=== PATIENT | male | born 1990 | race Two or more races ===

== ENCOUNTER 2019-08-17 22:04 | Emergency (ER) | payer SELFPAY ==
[2019-08-17] MEDS ORDERED: Ondansetron 4 MG/2 ML SDV IVPUSH ONE (22:55)
[2019-08-17] MEDS ORDERED: Sodium Chloride 0.9% 1,000 ML IV ONE ×2 (22:55→22:58)
[2019-08-17] MEDS: HYDROmorphone 1 MG/ML Syringe IVPUSH PRN (23:05)
[2019-08-17 23:30] LABS: CARBON DIOXIDE,CO2 19.5 mmol/L (21.0-32.0); POTASSIUM,K 3.4 mmol/L (3.5-5.1)
[2019-08-17] MEDS ORDERED: Iopamidol 755 Mg/ML 100 ML Bottle IVPUSH STA (23:53)
[2019-08-18] MEDS: HYDROmorphone 1 MG/ML Syringe IVPUSH PRN ×2 (00:48→03:05)
--- NOTE | 2019-08-18 01:02 | CT ---
HISTORY: Right upper quadrant pain. TECHNIQUE: CT abdomen and pelvis with IV contrast. COMPARISON: None. FINDINGS: Abdomen: Diffusely decreased attenuation of the liver. No focal liver lesions. Gallbladder is distended. No bile duct dilation. Scattered calcifications in the pancreas. No peripancreatic inflammatory change. No pancreatic mass. No spleen lesions. No adrenal nodules. Kidneys enhance symmetrically. 1.7 cm cyst in the upper pole of the left kidney. Several subcentimeter hypodense lesions in both kidneys are too small to characterize but likely cysts. No hydronephrosis. No dilated bowel. Appendix is normal. No free fluid. No lymphadenopathy. Abdominal aorta is normal caliber. Pelvis: No lymphadenopathy. Musculoskeletal: Unremarkable. Lower chest: Unremarkable. IMPRESSION: 1. Distended gallbladder without pericholecystic inflammatory change. No bile duct dilation. 2. Fatty infiltration of the liver. 3. Findings of chronic pancreatitis. Please note that all CT scans at this facility use dose modulation, iterative reconstruction, and/or weight-based dosing when appropriate to reduce radiation dose to as low as reasonably achievable. Dictated by Nguyễn Rai MD @ Aug 18 2019 12:56AM Signed by Dr. Nguyễn Rai @ Aug 18 2019 1:01AM
[2019-08-18] MEDS ORDERED: Haloperidol Lactate 5 MG/ML SDV IM ONE (03:12)
[2019-08-18 03:38] LABS: CARBON DIOXIDE,CO2 21.9 mmol/L (21.0-32.0); POTASSIUM,K 4.1 mmol/L (3.5-5.1)
--- NOTE | 2019-08-18 04:38 | EDM.PDOC ---
ED [facility] GENERAL MEDICAL PROBLEM - General Chief Complaint: Gastrointestinal Problem Stated Complaint: ABDOMINAL PAIN Time Seen by Provider: 08/17/19 22:54 - History of Present Illness INITIAL COMMENTS - FREE TEXT/NARRATIVE: HPI 29-year-old male presents with epigastric pain, nausea, vomiting of ~3 days duration after heavy drinking. No chest pain, shortness breath, fevers, chills, dysuria, urinary frequency. No diarrhea. Notes frequent loose stools. M/S/F/SocHx notable for: please see HPI; remainder reviewed with patient and in chart. ROS: Negative constitutional, eye, cardiovascular, pulmonary, GI, , MSK, skin , neurologic, psychiatric, endocrine unless noted in the HPI. Exam HR 145, RR 18, BP 150/11, T 37.7C, SaO2 96% on room air. Gen: Pleasant, non-toxic appearing, resting in mild-moderate discomfort. HEENT: NC, AT, PEERL, EOMI. Resp: Clear to auscultation bilaterally, normal work of breathing, no accessory muscle usage. Card: Regular rate and rhythm with no murmurs, rubs, or gallops, extremities warm and well perfused. GI:-moderate right sided and epigastric tenderness palpation, remainder of abdomen nontender to palpation, no rebound, no guarding. : No suprapubic tenderness to palpation. No CVA tenderness percussion bilaterally. MSK: No visible deformities, strength and tone without visually appreciable deficit. Skin: Normal color with no visible lesions. Neuro: alert and oriented 3, no facial asymmetry, vision and hearing WNL. Psych: Mood and affect appropriate. Focused Biliary Ultrasound Indication: Right upper quadrant pain. Views Obtained: Transverse and longitudinal biliary views. Transverse common bile duct. Findings: Negative sonographic Rosas sign. No stones or sludge appreciated. Perpendicular measurement of the anterior gallbladder wall at 1.5 mm. No pericholecystic fluid. Labs / Imaging: WBC 19.75, HB 16.4, lactic acid 1.6, sodium 133, potassium 3.4, total bilirubin 1.6, AST 39, ALT 53, alkaline phosphatase 124, lipase 378. UA - small leukocyte esterase, small occult blood, negative nitrate, few bacteria. CT abdomen/pelvis: distended gallbladder without pericholecystic inflammatory change. No bile duct dilatation. Fatty infiltration of the liver. Findings of chronic pancreatitis. Labs (repeat): WBC 13.96, HB 14.4, sodium 137, potassium 4.1, AST 28, ALT 43, alkaline phosphatase 101, total bilirubin 0.9. MDM Previous chart, nursing note, labs, imaging, and vitals reviewed. A: 29-year-old male presents with epigastric pain, nausea, vomiting of ~3 days duration after heavy drinking. DDx: biliary disease (cholelithiasis, cholecystitis, cholangitis, choledocholithiasis), pancreatitis, dehydration, electrolyte abnormalities, acute appendicitis, bacterial enteritis, bacteremia/septicemia. Evaluation: symptoms are believed to be secondary to a likely self-limited enteritis. While the patient had significant leukocytosis and mild liver enzyme abnormalities on arrival, these significantly improved with supportive care. CT notable for distended gallbladder, [id number] ultrasound without findings consistent with cholecystitis. No further acute abnormalities noted. UA negative. ED Course: 2 L NS, 4 mg Zofran, p.r.n. hydromorphone ordered with the initial evaluation for symptomatic treatment. Patient with significant improvement, mild ongoing nausea, 2 mg haloperidol given. Patient able to take PO well. Repeat labs with significant improvement in white blood cell count, normalization of liver enzymes. 04:33 - patient resting comfortably, notes resolution of symptoms. Taking PO well. Disposition: discharge with RX for Zofran and Bentyl. PCP follow-up recommended. Return to care precautions provided. Impression: nausea, vomiting, diarrhea, abdominal pain. abdominal Pain Score (Numeric/FACES): 10 - Related Data Allergies Allergy/AdvReac Type Severity Reaction Status Date / Time No Known Allergies Allergy Verified 08/17/19 22:28 Home Meds: Home Meds Dicyclomine [Bentyl] 20 mg PO TID PRN #12 tab 08/18/19 [Rx] Ondansetron [Zofran ODT] 4 mg PO Q6H PRN #12 tab.dis 08/18/19 [Rx] Past Medical History HEENT History: Reports: None Cardiovascular History: Reports: None Respiratory History: Reports: None Gastrointestinal History: Reports: Pancreatitis Genitourinary History: Reports: None Musculoskeletal History: Reports: None Neurological History: Reports: None Psychiatric History: Reports: None Endocrine/Metabolic History: Reports: None Hematologic History: Reports: None Dermatologic History: Reports: None - Infectious Disease History Infectious Disease History: Reports: Chicken Pox - Past Surgical History Male Surgical History: Reports: None Social & Family History - Family History Family Medical History: Noncontributory - Recreational Drug Use Recreational Drug Use: Yes Recreational Drug Type: Reports: Marijuana/Hashish ED ROS GENERAL - Review of Systems Review Of Systems: See Below ED EXAM, GENERAL - Physical Exam Exam: See Below Course - Vital Signs Last Recorded V/S: Last Vital Signs Temp 37.7 C 08/17/19 22:28 Pulse 145 H 08/17/19 22:28 Resp 18 08/17/19 22:28 BP 158/11 H 08/17/19 22:28 Pulse Ox 96 08/17/19 22:28 - Orders/Labs/Meds Orders: Active Orders 24 hr Category Date Time Status Communication Order [RC] STAT Care 08/18/19 02:56 Active Labs: Laboratory Tests 08/17/19 08/17/19 08/17/19 Range/Units 23:00 23:00 23:00 WBC 19.75 H (4.0-11.0) K/uL RBC 4.79 (4.50-5.90) M/uL Hgb 16.4 (13.0-17.0) g/dL Hct 45.2 (38.0-50.0) % MCV 94.4 (80.0-98.0) fL MCH 34.2 H (27.0-32.0) pg MCHC 36.3 (31.0-37.0) g/dL RDW Std Deviation 41.0 (28.0-62.0) fl RDW Coeff of [place] 12 (11.0-15.0) % Plt Count 237 (150-400) K/uL MPV 9.60 (7.40-12.00) fL Neut % (Auto) 86.3 H (48.0-80.0) % Lymph % (Auto) 6.8 L (16.0-40.0) % [place] % (Auto) 6.7 (0.0-15.0) % Eos % (Auto) 0.0 (0.0-7.0) % Baso % (Auto) 0.2 (0.0-1.5) % Neut # (Auto) 17.0 H (1.4-5.7) K/uL Lymph # (Auto) 1.4 (0.6-2.4) K/uL [place] # (Auto) 1.3 H (0.0-0.8) K/uL Eos # (Auto) 0.0 (0.0-0.7) K/uL Baso # (Auto) 0.0 (0.0-0.1) K/uL Nucleated RBC % 0.0 /100WBC Nucleated RBCs # 0 K/uL Lactate 1.6 (0.20-2.00) mmol/L Sodium (136-148) mmol/L Potassium (3.5-5.1) mmol/L Chloride (98-107) mmol/L Carbon Dioxide (21.0-32.0) mmol/L BUN (7.0-18.0) mg/dL Creatinine (0.8-1.3) mg/dL Est Cr Clr Drug Dosing mL/min Estimated GFR (MDRD) ml/min Glucose (74-106) mg/dL Calcium (8.5-10.1) mg/dL Total Bilirubin (0.2-1.0) mg/dL AST (15-37) IU/L ALT (14-63) IU/L Alkaline Phosphatase (46-116) U/L Total Protein (6.4-8.2) g/dL Albumin (3.4-5.0) g/dL Globulin (2.6-4.0) g/dL Albumin/Globulin Ratio (0.9-1.6) Lipase (73-393) U/L Urine Color YELLOW Urine Appearance CLEAR Urine pH 7.0 (5.0-8.0) Ur Specific [place] 1.015 (1.001-1.035) Urine Protein 100 H (NEGATIVE) mg/dL Urine Glucose (UA) NEGATIVE (NEGATIVE) mg/dL Urine Ketones NEGATIVE (NEGATIVE) mg/dL Urine Occult Blood SMALL H (NEGATIVE) Urine Nitrite NEGATIVE (NEGATIVE) Urine Bilirubin NEGATIVE (NEGATIVE) Urine Urobilinogen 0.2 (<2.0) EU/dL Ur Leukocyte Esterase SMALL H (NEGATIVE) Urine RBC 0-2 (0-2/HPF) Urine WBC 7-10 (0-5/HPF) Ur Epithelial Cells RARE (NONE-FEW) Urine Bacteria FEW (NEGATIVE) 08/17/19 08/18/19 08/18/19 Range/Units 23:00 03:10 03:10 WBC 13.96 H (4.0-11.0) K/uL RBC 4.28 L (4.50-5.90) M/uL Hgb 14.4 (13.0-17.0) g/dL Hct 41.2 (38.0-50.0) % MCV 96.3 (80.0-98.0) fL MCH 33.6 H (27.0-32.0) pg MCHC 35.0 (31.0-37.0) g/dL RDW Std Deviation 42.3 (28.0-62.0) fl RDW Coeff of [place] 12 (11.0-15.0) % Plt Count 214 (150-400) K/uL MPV 9.30 (7.40-12.00) fL Neut % (Auto) 78.5 (48.0-80.0) % Lymph % (Auto) 13.3 L (16.0-40.0) % [place] % (Auto) 8.0 (0.0-15.0) % Eos % (Auto) 0.0 (0.0-7.0) % Baso % (Auto) 0.2 (0.0-1.5) % Neut # (Auto) 11.0 H (1.4-5.7) K/uL Lymph # (Auto) 1.9 (0.6-2.4) K/uL [place] # (Auto) 1.1 H (0.0-0.8) K/uL Eos # (Auto) 0.0 (0.0-0.7) K/uL Baso # (Auto) 0.0 (0.0-0.1) K/uL Nucleated RBC % 0.0 /100WBC Nucleated RBCs # 0 K/uL Lactate (0.20-2.00) mmol/L Sodium 133 L 137 (136-148) mmol/L Potassium 3.4 L 4.1 (3.5-5.1) mmol/L Chloride 96 L 102 (98-107) mmol/L Carbon Dioxide 19.5 L 21.9 (21.0-32.0) mmol/L BUN 17 16 (7.0-18.0) mg/dL Creatinine 1.6 H 1.4 H (0.8-1.3) mg/dL Est Cr Clr Drug Dosing 60.92 69.62 mL/min Estimated GFR (MDRD) 51.0 59.5 ml/min Glucose 156 H 125 H (74-106) mg/dL Calcium 8.8 7.9 L (8.5-10.1) mg/dL Total Bilirubin 1.6 H 0.9 (0.2-1.0) mg/dL AST 39 H 28 (15-37) IU/L ALT 53 43 (14-63) IU/L Alkaline Phosphatase 124 H 101 (46-116) U/L Total Protein 9.1 H 7.6 (6.4-8.2) g/dL Albumin 4.6 3.8 (3.4-5.0) g/dL Globulin 4.5 H 3.8 (2.6-4.0) g/dL Albumin/Globulin Ratio 1.0 1.0 (0.9-1.6) Lipase 378 (73-393) U/L Urine Color Urine Appearance Urine pH (5.0-8.0) Ur Specific [place] (1.001-1.035) Urine Protein (NEGATIVE) mg/dL Urine Glucose (UA) (NEGATIVE) mg/dL Urine Ketones (NEGATIVE) mg/dL Urine Occult Blood (NEGATIVE) Urine Nitrite (NEGATIVE) Urine Bilirubin (NEGATIVE) Urine Urobilinogen (<2.0) EU/dL Ur Leukocyte Esterase (NEGATIVE) Urine RBC (0-2/HPF) Urine WBC (0-5/HPF) Ur Epithelial Cells (NONE-FEW) Urine Bacteria (NEGATIVE) Meds: Medications Discontinued Medications Generic Name Dose Route Start Last Admin Trade Name Freq PRN Reason Stop Dose Admin Haloperidol Lactate 2 mg 08/18/19 03:12 08/18/19 03:53 Haldol IM 08/18/19 03:13 2 mg ONETIME ONE Administration Hydromorphone HCl 0.5 - 1 mg 08/17/19 22:55 08/18/19 03:05 Dilaudid IVPUSH 1 mg Q1H PRN Administration Pain Sodium Chloride 1,000 mls @ 1,000 mls/hr 08/17/19 22:55 08/17/19 23:04 Normal Saline IV 08/17/19 23:54 1,000 mls/hr .Bolus ONE Administration Sodium Chloride 1,000 mls @ 1,000 mls/hr 08/17/19 22:58 08/18/19 00:49 Normal Saline IV 08/17/19 23:57 1,000 mls/hr .Bolus ONE Administration Iopamidol 100 ml 08/17/19 23:53 08/18/19 00:07 Isovue-370 (76%) IVPUSH 08/17/19 23:54 100 ml ONETIME STA Administration Ondansetron HCl 4 mg 08/17/19 22:55 08/17/19 23:05 Zofran IVPUSH 08/17/19 22:56 4 mg ONETIME ONE Administration Departure - Departure Time of Disposition: 04:36 Disposition: Home, Self-Care 01 Clinical Impression: Vomiting, Diarrhea, Abdominal pain - Discharge Information Prescriptions: Dicyclomine [Bentyl] 20 mg PO TID PRN #12 tab PRN Reason: Pain Ondansetron [Zofran ODT] 4 mg PO Q6H PRN #12 tab.dis PRN Reason: Nausea Referrals: PCP,None [Primary Care Provider] - Additional Instructions: You were in seen in the [facility] Emergency Department for evaluation of nausea, vomiting, diarrhea, abdominal pain. At the time of your evaluation your symptoms are tentatively believed to be due to a viral GI infection. You have been prescribed Zofran, an antinausea medication, and Bentyl, and antispasmodic. Please read and follow all of the instructions below. Please follow up with your primary care physician tomorrow for repeat evaluation. When calling for follow-up care, please make the office aware that this follow-up is from your recent emergency room visit. If for any reason you are refused follow-up, please contact the [facility] Emergency Department at and asked to speak to the emergency department charge nurse. Your care today was limited to identifying and treating emergent medical problems only. Many people have subtle differences in their test results that require follow up with their outpatient physician(s) to correctly determine if this represents a normal variation or concerning abnormality with respect to your specific health. The care given to you today was limited to identifying and treating emergent medical problems - you need to request a copy of all of your medical records from today's visit and follow up with your outpatient physician(s) to review both today's visit and your overall health. If you have any new symptoms or if you are at all concerned about your health please return immediately to the emergency department. Abdominal Pain The exact cause of your abdominal pain is not certain. Based upon the testing today you are felt to be at low risk for discharge. There are no current signs of a life threatening illness or injury. Your condition does not seem serious now; however, sometimes the signs of a serious problem may take more time to appear. For this reason, it is important for you to watch for any new symptoms, problems, or worsening of your condition. Over the next few days, the abdominal pain may come and go, or be continuous. Other common symptoms can include nausea and vomiting. Sometimes it can be difficult to tell if you feel nauseous , you may just feel bad and not associate that feeling with nausea. Constipation , diarrhea, and a fever may go along with the pain. The pain may continue even if treated correctly over the following days. Depending on how things go, sometimes the cause can become clear and may require further or different treatment. Additional evaluations, medications, or tests may be needed. If your symptoms do not worsen but you are still having pain after 12-24 hours, please call your primary care physician to arrange for further evaluation. Return to the emergency department if any of the following occur: Pain gets worse or moves to the right lower abdomen New or worsening vomiting or diarrhea Swelling of the abdomen Unable to pass gas or stool for more than 8 hours Fever of 100.4F (38C) or higher, or as directed by your healthcare provider. Blood in vomit or bowel movements (dark red or black color) If you have yellow skin or eyes or if you have dark brown urine. Weakness, dizziness Chest, arm, back, neck or jaw pain Unexpected vaginal bleeding or missed period Trouble breathing Confusion Fainting or loss of consciousness Rapid heart rate Seizure If you are light headed upon standing or passing out. If you are otherwise concerned about your health. Home Care Do not force yourself to eat, especially if having cramps, vomiting, or diarrhea. Water is important so you do not get dehydrated. Soup may also be good. Sports drinks may also help, especially if they are not too acidic. Make sure you don't drink sugary drinks as this can make things worse. Take liquids in small amounts. Caffeine sometimes makes the pain and cramping worse. Avoid dairy products if you have vomiting or diarrhea. Don't eat large amounts at a time. Wait a few minutes between bites. Eat a diet low in fiber (called a low-residue diet). Foods allowed include refined breads, white rice, fruit and vegetable juices without pulp, tender meats. These foods will pass more easily through the intestine. Avoid whole-grain foods, whole fruits and vegetables, meats, seeds and nuts, fried or fatty foods, dairy, alcohol and spicy foods until your symptoms go away. Ondansetron (Brand Name: Zofran) Take one tablet every 6 hours as needed for nausea SIDE EFFECTS: Headache, fever, lightheadedness, dizziness, drowsiness, tiredness , constipation. If these effects persist or worsen, notify your doctor promptly. Many people using this medication do not have serious side effects. Tell your doctor right away if you have any serious side effects, including: stomach pain, muscle stiffness/spasm, vision changes (e.g., temporary loss of vision, blurred vision, uncontrollable eye movements). Get medical help right away if any of these rare but very serious side effects occur: chest pain, fainting, slow/fast/irregular heartbeat. A very serious allergic reaction to this drug is rare. However, get medical help right away if you notice any of the following symptoms of a serious allergic reaction: rash, itching/swelling ( especially of the face/tongue/throat), severe dizziness, trouble breathing. This is not a complete list of possible side effects. If you notice other effects not listed above, contact your doctor or pharmacist. PRECAUTIONS: Before using ondansetron, tell your doctor or pharmacist if you are allergic to it; or to other serotonin blockers (e.g., granisetron); or if you have any other allergies. This product may contain inactive ingredients, which can cause allergic reactions or other problems. Talk to your pharmacist for more details. Before using this medication, tell your doctor or pharmacist your medical history, especially of: irregular heartbeat, liver disease, stomach /intestinal problems (e.g., recent abdominal surgery, ileus, swelling). Ondansetron may cause a condition that affects the heart rhythm (QT prolongation ). QT prolongation can infrequently result in serious (rarely fatal) fast/ irregular heartbeat and other symptoms (such as severe dizziness, fainting) that require immediate medical attention. The risk of QT prolongation may be increased if you have certain medical conditions or are taking other drugs that may affect the heart rhythm (see also Drug Interactions section). Before using ondansetron, tell your doctor or pharmacist if you have any of the following conditions: certain heart problems (heart failure, slow heartbeat, QT prolongation in the EKG), family history of certain heart problems (QT prolongation in the EKG, sudden cardiac ). Low levels of potassium or magnesium in the blood may also increase your risk of QT prolongation. This risk may increase if you use certain drugs (such as diuretics/"water pills") or if you have conditions such as severe sweating, diarrhea, or vomiting. Talk to your doctor about using ondansetron safely. This drug may make you dizzy or drowsy or cause blurred vision. Do not drive, use machinery, or do any activity that requires alertness or clear vision until you are sure you can perform such activities safely. Limit alcoholic beverages. Infants younger than 5 months may be more sensitive to the effects of this drug, especially diarrhea. During , this medication should be used only when clearly needed. Discuss the risks and benefits with your doctor. It is not known if this drug passes into breast milk. Consult your doctor before breast-feeding. DRUG INTERACTIONS: Drug interactions may change how your medications work or increase your risk for serious side effects. This document does not contain all possible drug interactions. Keep a list of all the products you use (including prescription/nonprescription drugs and herbal products) and share it with your doctor and pharmacist. Do not start, stop, or change the dosage of any medicines without your doctor's approval. Some products that may interact with this drug include: apomorphine, tramadol. Many drugs besides ondansetron may affect the heart rhythm (QT prolongation), including dofetilide, pimozide, procainamide, amiodarone, quinidine, sotalol, macrolide antibiotics (such as erythromycin), among others. Therefore, before using ondansetron, report all medications you are currently using to your doctor or pharmacist. Dicyclomine (Brand Name: Bentyl) This medication is used to reduce abdominal cramping due to diarrhea or irritable bowel disease. This medication works by slowing the natural movements of the gut and by relaxing the muscles in the stomach and intestines. Dicyclomine belongs to a class of drugs known as anticholinergics/ antispasmodics. This medication must not be used in children younger than 6 months old because of the risk of serious side effects. Take 20 mg every 6 hours as needed for treatment of abdominal cramps. Dicyclomine treats only the symptoms, not the cause of diarrhea (e.g. infection) or irritable bowel disease. Stop taking this medication and seek immediate medical attention if any of these unlikely but serious side effects occur: severe constipation/nausea/ vomiting, stomach/abdominal pain, uncomfortable fullness of the stomach/abdomen , bloody diarrhea or if you are otherwise concerned about your health. Please read all of the instructions and warnings below as well as on the package insert. Dicyclomine - How To Use: Take this medication by mouth, usually 4 times a day (before meals and at bedtime) or as directed by your doctor. To reduce your risk of side effects, your doctor may direct you to start this medication at a low dose and gradually increase your dose. Follow your doctor's instructions carefully. If you are using the liquid form of this medication, carefully measure the dose using a special measuring device/spoon. Do not use a household spoon because you may not get the correct dose. Mix the dose of liquid with an equal amount of water before taking it. Antacids lower the absorption of dicyclomine. Do not take this medication at the same time as antacids. If you are taking an antacid, take it after meals and take dicyclomine before meals. The dosage is based on your age, medical condition, and response to treatment. Do not increase your dose or take this drug more often without your doctor' s approval. Your condition will not improve any faster and the risk of serious side effects may increase. If this medication has been used regularly for a long time or in high doses , withdrawal symptoms (such as dizziness, sweating, vomiting) may rarely occur if you suddenly stop using this medication. To prevent withdrawal reactions, your doctor may reduce your dose gradually. Consult your doctor or pharmacist for more details, and report any withdrawal reactions right away. Along with its benefits, this medication may rarely cause abnormal drug- seeking behavior (addiction). Take this medication exactly as prescribed to lessen the risk of addiction. Tell your doctor if your condition persists or worsens. Dicyclomine - Side Effects: Dizziness, drowsiness, lightheadedness, weakness, blurred vision, dry eyes, dry mouth, nausea, constipation, and abdominal bloating may occur. If any of these effects persist or worsen, tell your doctor or pharmacist promptly. To relieve dry mouth, suck (sugarless) hard candy or ice chips, chew ( sugarless) gum, drink water, or use a saliva substitute. To relieve dry eyes, consult your pharmacist for artificial tears or other eye lubricants. To prevent constipation, eat a diet adequate in fiber, drink plenty of water , and exercise. Consult your pharmacist for help in selecting a laxative (such as a stimulant type with stool softener). Remember that your doctor has prescribed this medication because he or she has judged that the benefit to you is greater than the risk of side effects. Many people using this medication do not have serious side effects. Tell your doctor right away if any of these unlikely but serious side effects occur: decreased sweating, dry/hot/flushed skin, fast/irregular heartbeat, loss of coordination, slurred speech, mental/mood changes (such as confusion, hallucinations, agitation, nervousness, unusual excitement), difficulty urinating, decreased sexual ability. Get medical help right away if you have any very serious side effects, including: eye pain/swelling/redness, vision changes (such as seeing rainbows around lights at night). A very serious allergic reaction to this drug is rare. However, seek immediate medical attention if you notice any symptoms of a serious allergic reaction, including: rash, itching/swelling (especially of the face/tongue/ throat), severe dizziness, trouble breathing. This is not a complete list of possible side effects. If you notice other effects not listed above, contact your doctor or pharmacist. Dicyclomine - Precautions: Before taking dicyclomine, tell your doctor or pharmacist if you are allergic to it; or if you have any other allergies. This product may contain inactive ingredients, which can cause allergic reactions or other problems. Talk to your pharmacist for more details. Before using this medication, tell your doctor or pharmacist your medical history, especially of: personal or family history of glaucoma (angle-closure type), enlarged prostate, problems with urination due to a blocked urinary tract , other stomach/intestinal problems (such as slow gut, blockage, ulcerative colitis, infection, little/no stomach acid, ileostomy/colostomy patients with diarrhea), overactive thyroid, heart problems (such as coronary artery disease, angina, congestive heart failure, fast/irregular heartbeat, heart problems due to severe bleeding), high blood pressure, heartburn problems (such as acid reflux, hiatal hernia, esophagus problems), certain nervous system problem ( autonomic neuropathy), myasthenia gravis, liver problems, kidney problems. This drug may make you dizzy or drowsy or cause blurred vision. Do not drive , use machinery, or do any activity that requires alertness or clear vision until you are sure you can perform such activities safely. Limit alcoholic beverages. This medication may make you sweat less, making you more likely to get heat stroke. Avoid doing things that may cause you to overheat, such as hard work or exercise in hot weather, or using hot tubs. When the weather is hot, drink a lot of fluids and dress lightly. If you overheat, quickly look for a place to cool down and rest. Get medical help right away if you have a fever that does not go away, mental/mood changes, headache, or dizziness. Older adults may be more sensitive to the side effects of this drug, especially drowsiness, confusion, unusual excitement, constipation, fast heartbeat, and urination problems. Drowsiness and confusion can increase the risk of falling. During , this medication should be used only when clearly needed. Discuss the risks and benefits with your doctor. This medication passes into breast milk and may have undesirable effects on a nursing . The automobile technician recommends that you do not breast-feed while using this drug. Consult your doctor for more details. Dicyclomine - Drug Interactions: Drug interactions may change how your medications work or increase your risk for serious side effects. This document does not contain all possible drug interactions. Keep a list of all the products you use (including prescription/ nonprescription drugs and herbal products) and share it with your doctor and pharmacist. Do not start, stop, or change the dosage of any medicines without your doctor's approval. Some products that may interact with this drug include: potassium tablets/ capsules, drugs that are affected by slowed gut movement (such as pramlintide). Dicyclomine may affect the absorption of other products such as levodopa, certain azole anti-fungal drugs (ketoconazole, itraconazole), slowly-dissolving forms of digoxin, among others. If you are taking either ketoconazole or itraconazole, take it at least 2 hours before dicyclomine. Many other drugs that also cause dry mouth and constipation may interact with anticholinergics/antispasmodics such as dicyclomine. Tell your doctor or pharmacist about all the products you take, including: amantadine, other anticholinergic drugs (such as atropine, glycopyrrolate, scopolamine), other antispasmodic drugs (such as clidinium, propantheline), belladonna alkaloids, certain drugs used to treat Parkinson's disease (such as benztropine, trihexyphenidyl), certain drugs used to treat irregular heart rhythms (such as disopyramide, quinidine), MAO inhibitors (isocarboxazid, linezolid, methylene blue, moclobemide, phenelzine, procarbazine, rasagiline, selegiline, tranylcypromine), phenothiazines (such as chlorpromazine), tricyclic antidepressants (such as amitriptyline). Tell your doctor or pharmacist if you are taking other products that cause drowsiness including alcohol, antihistamines (such as cetirizine, diphenhydramine), drugs for sleep or anxiety (such as alprazolam, diazepam, zolpidem), muscle relaxants, and narcotic pain relievers (such as codeine). Check the labels on all your medicines (such as allergy or [id number]-owpg products, diet aids) because they may contain ingredients that cause drowsiness or a fast heartbeat. Ask your pharmacist about using those products safely. This medication may interfere with certain laboratory tests (including gastric secretion tests), possibly causing false test results. Make sure laboratory personnel and all your doctors know you use this drug. Prescriptions: If you are uninsured or have financial difficulties with filling your prescription(s), you may consider using a free pharmacy discount service such as [employer] ([employer]) or [employer] ([employer]). These services allow you to search for a medication on your phone (or computer) and obtain a coupon that usually has a significant discount from the list hull at a pharmacy. Your physician as well as [facility] does not have a financial relationship with either of these services. You may also wish to speak with your physician to determine if lower cost prescriptions are possible. Obtaining primary care: 1. [facility] provides pediatrics (children), family medicine (children, adults, and some obstetrical care), and internal medicine (adults). Further specialty care is also available. Same day appointments are available. They may be contacted at [phone] and are open Sunday through Sunday 8 AM to [address] [facility] are located at [facility], [address] [place] [address]. 2. [facility] offers family medicine, internal medicine, women health, and further specialty care. [facility] may be contacted at [phone]. [facility] is located at [address] [facility] [address]. 3. If you have health insurance, please also contact your insurer for a list of accepting providers under your policy, you may contact these providers for further health care. Occupational health: Work related injuries may consider following up with [facility], . Occupational health services are located at [address] [place] [address] and are open Sunday through Sunday from 7: 30 am to 5:00 pm. Obstetrical and Gynecological Care: [facility], , Sunday through Sunday 8 AM to [address] [place] [address]. Eyecare: If you have an eye injury you should follow up with your sludge filtration attendant or with [facility], at [phone] or [phone] , they are located at [address] [place] [address]. Dental Care Richar Lang DDS. [address] [place], [place]. Ph. [phone] Garry Lang DDS [place]. [address] Ph[address] Leland Langley DDS. 10 08/[address] [place] [address], [place], [place]. Ph. [phone] Jonatan Arias DDS. [address] [facility] 4 [place], [place]. Ph. [phone] Ezio Younger DDS PC. [address] [facility] [address] [place], [place]. Ph. Kiko Bradley DDS. [address] [facility]. Ph. [phone] [facility]. [address] [place], [place]. Ph. [phone] [facility]. [address] [place] [address], [place], [place]. Ph. [phone] [facility] [address] [place] [phone]. Ph. [facility]. [address] [place] [address] [address]. [place], [place]. Ph. [phone] [facility]. [address] [place], [place]. Ph. [phone] Sepsis Event Note - Evaluation Sepsis Screening Result: No Definite Risk - Focused Exam Vital Signs: Vital Signs Temp Pulse Resp BP Pulse Ox 08/17/19 22:28 37.7 C 145 H 18 158/11 H 96 Date Exam was Performed: 08/18/19 Time Exam was Performed: 04:36 - My Orders Last 24 Hours: My Active Orders 08/18/19 02:56 Communication Order [RC] STAT - Assessment/Plan Last 24 Hours: My Active Orders 08/18/19 02:56 Communication Order [RC] STAT
== END 2019-08-18 04:51 | disposition home or self-care (01) ==
LOC: MW.ED 22:04
DX: R11.2 Nausea with vomiting, unspecified (principal); R10.13 Epigastric pain; R19.7 Diarrhea, unspecified
CPT/HCPCS: 36415; 74177; 80053; 81001; 83605; 83690; 85025; 87804; 96361; 96372; 96374; 96375; 96376; 99284; J1170; J1630; J2405; J7030; Q9967